=== PATIENT | female | born 1955 | race Hispanic/Latino ===

== ENCOUNTER 2017-02-10 11:21 | Emergency (ER) | payer BC, OTHER ==
[2017-02-10 11:47] VITALS: RESP 18; O2SAT 98
--- NOTE | 2017-02-10 12:07 | ED PDOC ---
HPI: General Adult Time Seen by Provider: 02/10/17 11:35 Chief Complaint (Nursing): Finger,Hand,&Wrist History Per: Patient Additional Complaint(s): Pt. states earlier today she accidentally cut her L 4th finger with a knife while at work. Pt. applied "clotting powder" to wound. Denies numbness, tingling. Past Medical History Reviewed: Historical Data, Nursing Documentation, Vital Signs Vital Signs: Last Vital Signs Temp 98.0 F 02/10/17 11:42 Pulse 72 02/10/17 11:42 Resp 18 02/10/17 11:42 BP 148/66 02/10/17 11:42 Pulse Ox 98 02/10/17 12:07 - Family History Family History: States: No Known Family Hx - Home Medications Home Medications: Ambulatory Orders Medication Instructions Recorded Cephalexin [cephalexin] 500 mg PO Q6 #12 cap 02/10/17 - Allergies Allergies/Adverse Reactions: Allergies Allergy/AdvReac Type Severity Reaction Status Date / Time codeine Allergy NAUSEA Verified 02/10/17 11:42 Review of Systems ROS Statement: Except As Marked, All Systems Reviewed And Found Negative Physical Exam - Physical Exam Appears: Positive for: Well, Non-toxic, No Acute Distress Skin: Positive for: Normal Color, Warm. Negative for: Rash Extremity: Positive for: Normal ROM (L 4th digit), Other (L 4th digit on distal phalanx with 1cm superficial laceration without active bleeding and nail is intact; cap refill < 2 seconds) Neurologic/Psych: Positive for: Alert, Oriented - ECG O2 Sat by Pulse Oximetry: 98 - Progress ED Course And Treament: Tetanus prophylaxis administered. Procedures - Time-Out Type of Procedure: Laceration repair Site of Procedure: L 4th finger Correct Patient (with visual ID + MR# on ID Band): Yes Correct Procedure: Yes Correct Site Marked: Yes PA/Tech: Iraj - Laceration/Wound Repair Laceration repair Wound Length (cm): 1 Wound's Depth, Shape: superficial Wound Explored: contaminated Irrigated w/ Saline (ccs): 500 Betadine Prep?: Yes Anesthesia: 1% Lidocaine Volume Anesthetic (ccs): 3 Wound Debrided: clotting powder removed via irrigation Suture Size/Type: 6:0, proline Number of Sutures: 6 Layer Closure?: No Wound Complexity: Simple Sterile Dressing Applied?: Yes Disposition - Clinical Impression Clinical Impression: Finger laceration - Patient ED Disposition Is Patient to be Admitted: No - Disposition Referrals: Florencio Landry [Outside] Disposition: Routine/Home Disposition Time: 12:45 Condition: STABLE Prescriptions: Cephalexin [cephalexin] 500 mg PO Q6 #12 cap Instructions: Care For Your Stitches (ED), Laceration (ED) Forms: [employer] (Norwegian) Print Language: VENEZUELAN
[2017-02-10] MEDS ORDERED: Povidone Iodine Oint 10% Foilpak UD ONE (12:09)
[2017-02-10] MEDS ORDERED: Lidocaine 1% Inj (20ml) IJ ONE (12:21)
[2017-02-10] MEDS ORDERED: Povidone Iodine Topical 10% Sol ONE (12:22)
[2017-02-10 13:25] VITALS: BP 120/78; PULSE 78; TEMP 97.5
== END 2017-02-10 13:25 | disposition home or self-care (01) ==
LOC: SUPCPDRO 11:21 → H.ER 11:21
DX: S61.215A Laceration without foreign body of left ring finger without damage to nail, initial encounter (principal); W26.0XXA Contact with knife, initial encounter; Y93.9 Activity, unspecified; Y99.0 Civilian activity done for income or pay